=== PATIENT | female | born 1940 | race African-American/Black ===

== ENCOUNTER → 2017-12-05 | Outpatient (CLI) | payer MEDICARE, MEDICAID ==
[~2017-12-05] MED LIST: AMLO5TAB88 PO; CALC667C4 PO; CHOL100053 PO; FOLI-43 PO; LEVO88TA2 PO; METH2.5T PO; METH4TAB PO; NAPR-681 PO; OMEP20CA10 PO; POTA10TA15 PO; TRIA1CAP49 PO
== END | disposition home or self-care (01) ==
LOC: MAMMO 08:39
PROVIDERS: ATTEND Internal Medicine
DX: Z12.31 Encounter for screening mammogram for malignant neoplasm of breast (principal); E11.9 Type 2 diabetes mellitus without complications
CPT/HCPCS: 77067

== ENCOUNTER → 2018-03-08 | Day surgery (SDC) | payer MEDICARE, MEDICAID ==
[~2018-03-08] VITALS: Ht 149.9 cm; Wt 63.5 kg
[~2018-03-08] MED LIST changes: +ACETAMINOPHEN 325MG TABLET PO NR; +ACETYLCHOLINE CHLORIDE INTRAOCULAR SOLUTION 1:100 ELECTROLYTE DILUENT IO ONE; +BALANCED SALT IRRIG SOLN 15ML ONE; +BALANCED SALT IRRIG SOLN COMB1 500ML OP ONE; +BUPIVACAINE HCL/PF 0.75% (7.5MG/ML) 10ML ONE; +CALC1TAB PO; -CALC667C4 PO; +CIPROFLOXACIN 0.3% OPHTH SOLN 2.5ML ONE; +HYDROMORPHONE HCL/PF 2MG/ML CPJ IV PRN; +IBUPROFEN 600MG TABLET PO NR; +LIDOCAINE HCL/PF 1% 10 MG/ML 5ML VIAL ONE; +LIDOCAINE HCL/PF 2% 20 MG/ML 10ML VIAL ONE; +MIDAZOLAM HCL 2 MG/2 ML VIAL ONE; +NEO/POLYMYX B SULF/DEXAMETH OPHTH OINT 3.5GM ONE; +ONDANSETRON HCL 4MG/2ML VIAL IV PRN; +PHENYLEPHRINE 2.5% OPHTH 15 DROP/ML BOTTLE RIGHTEYE ONE; +PHENYLEPHRINE HCL 2.5% OPHTH DROPS 2ML ONE; +PREDNISOLONE ACETATE 1% OPHTH DROPS 1ML ONE; +PROPOFOL 200MG/20ML VIAL IV ONE; +SODIUM CHLORIDE 0.9% 1,000 ML IV ONE; +SUCCINYLCHOLINE CHLORIDE 200MG/10ML VIAL IV ONE; +TETRACAINE 0.5% OPHTH DROPS 4ML ONE; +TOBRAMYCIN/DEXAMETHASONE OPTH DROPS 2.5ML RIGHTEYE ONE; +TROPICAMIDE 1% OPHTH DROPS 15ML ONE; +TROPICAMIDE 1% OPHTH DROPS 15ML RIGHTEYE ONE
[2018-03-08 06:50] LABS: BASOPHILS % 0.5 % (0.0-2.0); EOSINOPHILS % 4.1 % (0.0-5.0); HEMATOCRIT. 32.9 % (36.0-48.0); HEMOGLOBIN. 10.7 g/dL (12.0-16.0); LYMPHOCYTES % 20.9 % (20.0-50.0); MEAN CORPUSCULAR HEMOGLOBIN 29.2 pg (28.0-32.0); MEAN CORPUSCULAR VOLUME 89.3 fL (81.0-99.0); MEAN PLATELET VOLUME 8.3 fl (7.4-10.4); NEUTROPHILS % 64.5 % (40.0-76.0); PLATELET 364 x1000/uL (130-400); RED BLOOD CELL COUNT 3.68 mill/uL (4.2-5.4); RED CELL DISTRIBUTION WIDTH 17.2 % (11.6-14.6)
[2018-03-08 06:54] LABS: CHLORIDE 108 mEq/L (98-107)
== END | disposition home or self-care (01) ==
LOC: OR 05:27
PROVIDERS: ATTEND Ophthalmology
DX: H26.8 Other specified cataract (principal); I10 Essential (primary) hypertension; E03.9 Hypothyroidism, unspecified; M19.90 Unspecified osteoarthritis, unspecified site; K21.9 Gastro-esophageal reflux disease without esophagitis; Z79.899 Other long term (current) drug therapy; Z98.890 Other specified postprocedural states; Z90.49 Acquired absence of other specified parts of digestive tract; Z90.710 Acquired absence of both cervix and uterus; Z88.5 Allergy status to narcotic agent; Z91.040 Latex allergy status
CPT/HCPCS: 36415; 66984; 80048; 85025; 93005; J0330; J2250; J3490; J7120; V2632; J2704

== ENCOUNTER 2018-07-23 16:05 | Emergency (ER) | payer MEDICARE, MEDICAID ==
[~2018-07-23] VITALS: Ht 149.9 cm; Wt 62.0 kg
[~2018-07-23 16:05] MED LIST changes: -ACETAMINOPHEN 325MG TABLET PO NR; -ACETYLCHOLINE CHLORIDE INTRAOCULAR SOLUTION 1:100 ELECTROLYTE DILUENT IO ONE; -BALANCED SALT IRRIG SOLN 15ML ONE; -BALANCED SALT IRRIG SOLN COMB1 500ML OP ONE; -BUPIVACAINE HCL/PF 0.75% (7.5MG/ML) 10ML ONE; -CIPROFLOXACIN 0.3% OPHTH SOLN 2.5ML ONE; -HYDROMORPHONE HCL/PF 2MG/ML CPJ IV PRN; -IBUPROFEN 600MG TABLET PO NR; -LIDOCAINE HCL/PF 1% 10 MG/ML 5ML VIAL ONE; -LIDOCAINE HCL/PF 2% 20 MG/ML 10ML VIAL ONE; -MIDAZOLAM HCL 2 MG/2 ML VIAL ONE; -NEO/POLYMYX B SULF/DEXAMETH OPHTH OINT 3.5GM ONE; -ONDANSETRON HCL 4MG/2ML VIAL IV PRN; -PHENYLEPHRINE 2.5% OPHTH 15 DROP/ML BOTTLE RIGHTEYE ONE; -PHENYLEPHRINE HCL 2.5% OPHTH DROPS 2ML ONE; -PREDNISOLONE ACETATE 1% OPHTH DROPS 1ML ONE; -PROPOFOL 200MG/20ML VIAL IV ONE; -SODIUM CHLORIDE 0.9% 1,000 ML IV ONE; -SUCCINYLCHOLINE CHLORIDE 200MG/10ML VIAL IV ONE; -TETRACAINE 0.5% OPHTH DROPS 4ML ONE; -TOBRAMYCIN/DEXAMETHASONE OPTH DROPS 2.5ML RIGHTEYE ONE; -TROPICAMIDE 1% OPHTH DROPS 15ML ONE; -TROPICAMIDE 1% OPHTH DROPS 15ML RIGHTEYE ONE
[2018-07-23 16:23] VITALS: BP 114/71
== END 2018-07-23 22:46 | disposition left against medical advice (07) ==
LOC: ER 16:05
DX: Z53.21 Procedure and treatment not carried out due to patient leaving prior to being seen by health care provider (principal)

== ENCOUNTER 2018-11-29 09:34 | Outpatient (CLI) | payer MEDICARE, MEDICAID ==
[2018-11-29] VITALS (12 sets, daily range): BP systolic 106–129; BP diastolic 59–78
[~2018-11-29] VITALS: Ht 149.9 cm; Wt 59.0 kg
[2018-11-29] MEDS ORDERED: FENTANYL CITRATE/PF 50MCG/ML 2ML VIAL ONE (10:27)
[2018-11-29] MEDS ORDERED: SODIUM BICARBONATE 4% (2.4MEQ) 5ML VIAL IV ONE (10:28)
[2018-11-29] MEDS ORDERED: LIDOCAINE HCL 1% 20ML VIAL (Pyxis) INJ ONE (10:28)
[2018-11-29] MEDS ORDERED: HYDROCODONE/ACETAMINOPHEN 5/325MG TABLET PO PRN (11:15)
[2018-11-29] MEDS ORDERED: FENTANYL CITRATE/PF 50MCG/ML 2ML VIAL IV ONE (11:45)
== END 2018-11-29 15:10 | disposition home or self-care (01) ==
LOC: RAD 09:34
PROVIDERS: ATTEND Internal Medicine Pulmonary Disease
DX: C34.92 Malignant neoplasm of unspecified part of left bronchus or lung (principal)
CPT/HCPCS: 32405; 71045; 71046; 77012; 88305; J3010; J3490

== ENCOUNTER 2019-01-01 05:23 | Inpatient (IN) | payer MEDICARE, MEDICAID ==
[2019-01-01] VITALS (36 sets, daily range): BP systolic 78–141; BP diastolic 48–76
[~2019-01-01] VITALS: Ht 152.4 cm; Wt 55.0 kg
[~2019-01-01 05:23] MED LIST changes: -OMEP20CA10 PO; +OMEP20CA5 PO
[2019-01-01] MEDS ORDERED: LACTATED RINGERS 1,000 ML IV SCH (05:30)
[2019-01-01 06:15] LABS: BG BASE EXCESS 0.4 mmol/L (-2.0-2.0); BG CARBOXYHEMOGLOBIN 0.4 % (0.5-1.5); BG DEOXYHEMOGLOBIN 4.1 % (0.0-5.0); BG FRACTION INSPIRED OXYGEN 21; BG HCO3 ACT 23.7 mmol/L (22.0-26.0); BG METHEMOGLOBIN 0.3 % (0.0-1.5); BG OXYGEN SATURATION 95.9 % (92.0-98.5); BG OXYHEMOGLOBIN 95.2 % (94.0-97.0); BG PCO2 33.9 mmHg (35.0-45.0); BG PH 7.462 (7.350-7.450); BG PO2 79.6 mmHg (75.0-100.0); BG SAMPLE SITE RIGHT BRACHIAL; BG VENT MODE ROOM AIR
[2019-01-01 06:31] LABS: CLARITY URINE CLEAR (CLEAR); COLOR URINE YELLOW (YELLOW); KETONES URINE NEGATIVE (NEGATIVE); LEUKOCYTE ESTERASE URINE TRACE (NEGATIVE); NITRITE URINE NEGATIVE (NEGATIVE); OCCULT BLOOD URINE NEGATIVE (NEGATIVE); PH URINE 7.5 (4.5-8.0); PROTEIN URINE NEGATIVE (NEGATIVE); SPECIFIC GRAVITY URINE 1.013 (1.005-1.030); UROBILINOGEN URINE 0.2 E.U./dL (0.2-1.0)
[2019-01-01] MEDS ORDERED: BACITRACIN 50,000 UNITS/VIAL ONE (07:02)
[2019-01-01] MEDS ORDERED: LIDOCAINE HCL/EPINEPHRINE 1%-EPI 1:100,000 20 ML VIAL ONE (07:02)
[2019-01-01] MEDS ORDERED: SKIN ADHESIVE 0.7 GM EA TOP ONE (07:02)
[2019-01-01] MEDS ORDERED: THROMBIN (BOVINE) 5000 UNITS/VIAL TOP ONE (07:08)
[2019-01-01] MEDS ORDERED: TETRACAINE/BENZOCAINE/BUTAMBEN 20 GM SPRAY MM ONE (07:20)
[2019-01-01] MEDS ORDERED: PROPOFOL 200MG/20ML VIAL IV ONE ×2 (07:34→11:57)
[2019-01-01] MEDS ORDERED: MIDAZOLAM HCL 2 MG/2 ML VIAL ONE (07:34)
[2019-01-01] MEDS ORDERED: ROCURONIUM BROMIDE 10MG/ML VIAL 5ML IV ONE ×2 (07:34→07:35)
[2019-01-01] MEDS ORDERED: LIDOCAINE HCL/PF 1% 10 MG/ML 5ML VIAL ONE (07:42)
[2019-01-01] MEDS ORDERED: BUPIVACAINE/EPINEPH/PF 0.25%/0.0005 10ML ONE (08:31)
[2019-01-01] MEDS ORDERED: ALBUTEROL 90MCG/PUFF 17GM INHALER INH ONE (09:03)
[2019-01-01] MEDS ORDERED: GLYCOPYRROLATE 0.2 MG/ML 2ML VIAL ONE (09:20)
[2019-01-01] MEDS ORDERED: NEOSTIGMINE METHYLSULFATE 1MG/ML 10 ML VIAL ONE (09:20)
[2019-01-01] MEDS ORDERED: ONDANSETRON HCL 4MG/2ML INJ IV PRN (11:45)
[2019-01-01] MEDS ORDERED: OXYCODONE HCL/ACETAMINOPHEN 5/325MG TABLET PO PRN ×2 (11:45)
[2019-01-01] MEDS ORDERED: SODIUM CHLORIDE 0.9% 500 ML IV PRN (11:45)
[2019-01-01] MEDS ORDERED: ACETAMINOPHEN 325MG TABLET PO PRN ×2 (11:45→13:00)
[2019-01-01] MEDS ORDERED: FUROSEMIDE 40MG/4ML VIAL ONE (11:56)
[2019-01-01 12:34] LABS: BG BASE EXCESS -2.8 mmol/L (-2.0-2.0); BG CARBOXYHEMOGLOBIN 0.3 % (0.5-1.5); BG DEOXYHEMOGLOBIN 5.4 % (0.0-5.0); BG HCO3 ACT 23.4 mmol/L (22.0-26.0); BG METHEMOGLOBIN 0.2 % (0.0-1.5); BG OXYGEN SATURATION 94.6 % (92.0-98.5); BG OXYHEMOGLOBIN 94.1 % (94.0-97.0); BG PCO2 46.1 mmHg (35.0-45.0); BG PH 7.323 (7.350-7.450); BG PO2 79.9 mmHg (75.0-100.0); BG SAMPLE SITE A-LINE; BG TOTAL HEMOGLOBIN 12.7 g/dL (12.0-18.0); BG VENT MODE MASK - SIMPLE
[2019-01-01 12:52] LABS: HEMATOCRIT. 35.9 % (36.0-48.0); HEMOGLOBIN. 11.5 g/dL (12.0-16.0); MEAN CORPUSCULAR HEMOGLOBIN 27.8 pg (28.0-32.0); MEAN CORPUSCULAR VOLUME 86.8 fL (81.0-99.0); MEAN PLATELET VOLUME 9.4 fl (7.4-10.4); PLATELET 410 x1000/uL (130-400); RED BLOOD CELL COUNT 4.14 mill/uL (4.2-5.4); RED CELL DISTRIBUTION WIDTH 17.9 % (11.6-14.6)
[2019-01-01 13:01] LABS: CHLORIDE 102 mEq/L (98-107)
[2019-01-01] MEDS: MORPHINE SULFATE 2 MG/ML CPJ (NOT FOR IM USE) IV PRN ×3 (13:14→18:34)
[2019-01-01] MEDS: LEVOTHYROXINE SODIUM 88MCG TABLET PO SCH (13:30)
[2019-01-01] MEDS ORDERED: SODIUM CHLORIDE 0.9% 250 ML IV ONE (13:30)
[2019-01-01 13:42] LABS: PLATELET ESTIMATE SLIGHTLY INCREASED
[2019-01-01] MEDS: MAGNESIUM HYDROXIDE 400MG/5ML 30ML UDC PO SCH ×3 (13:58→21:42)
[2019-01-01] MEDS: DEXT 5%/0.45% NACL 1000ML 1,000 ML IV SCH (14:37)
[2019-01-01] MEDS: CEFAZOLIN 1000MG PREMIX 50 ML IV SCH ×2 (15:01→21:42)
[2019-01-01] MEDS: DOCUSATE SODIUM 100MG CAPSULE PO SCH (16:30)
[2019-01-01] MEDS: KETOROLAC 15MG/ML VIAL IV SCH ×2 (18:34→23:33)
[2019-01-01] MEDS ORDERED: HYDROMORPHONE HCL/PF 2MG/ML CPJ IV SCH (19:15)
[2019-01-02] VITALS (46 sets, daily range): BP systolic 82–132; BP diastolic 34–89
[2019-01-02] MEDS: MAGNESIUM HYDROXIDE 400MG/5ML 30ML UDC PO SCH ×4 (01:06→14:00)
[2019-01-02] MEDS: IPRATROPIUM/ALBUTEROL 0.5-3(2.5)MG/3ML NEB HHN SCH ×6 (04:15→22:22)
[2019-01-02] MEDS: KETOROLAC 15MG/ML VIAL IV SCH ×3 (05:02→18:03)
[2019-01-02] MEDS: CEFAZOLIN 1000MG PREMIX 50 ML IV SCH ×2 (05:03→14:23)
[2019-01-02 06:04] LABS: HEMATOCRIT. 34.1 % (36.0-48.0); HEMOGLOBIN. 11.3 g/dL (12.0-16.0); MEAN CORPUSCULAR HEMOGLOBIN 28.5 pg (28.0-32.0); MEAN PLATELET VOLUME 9.4 fl (7.4-10.4); PLATELET 375 x1000/uL (130-400); RED BLOOD CELL COUNT 3.96 mill/uL (4.2-5.4); RED CELL DISTRIBUTION WIDTH 17.1 % (11.6-14.6)
[2019-01-02 06:07] LABS: CHLORIDE 101 mEq/L (98-107)
[2019-01-02] MEDS: DEXT 5%/0.45% NACL 1000ML 1,000 ML IV SCH (06:19)
[2019-01-02 07:27] LABS: PLATELET ESTIMATE NORMAL
[2019-01-02] MEDS: LEVOTHYROXINE SODIUM 88MCG TABLET PO SCH (08:13)
[2019-01-02] MEDS: DOCUSATE SODIUM 100MG CAPSULE PO SCH ×2 (08:14→18:03)
[2019-01-02] MEDS: FAMOTIDINE 20MG/2ML VIAL IV SCH (08:14)
[2019-01-02] MEDS ORDERED: POTASSIUM CHLORIDE 20MEQ TABLET SR PO NR (13:30)
[2019-01-03] VITALS (11 sets, daily range): BP systolic 94–135; BP diastolic 56–81
[2019-01-03] MEDS: IPRATROPIUM/ALBUTEROL 0.5-3(2.5)MG/3ML NEB HHN SCH ×5 (00:20→17:50)
[2019-01-03 06:04] LABS: HEMATOCRIT. 32.9 % (36.0-48.0); HEMOGLOBIN. 10.9 g/dL (12.0-16.0); MEAN CORPUSCULAR HEMOGLOBIN 28.4 pg (28.0-32.0); MEAN CORPUSCULAR VOLUME 86.1 fL (81.0-99.0); PLATELET 363 x1000/uL (130-400); RED BLOOD CELL COUNT 3.82 mill/uL (4.2-5.4)
[2019-01-03] MEDS: LEVOTHYROXINE SODIUM 88MCG TABLET PO SCH (06:21)
[2019-01-03] MEDS: FAMOTIDINE 20MG/2ML VIAL IV SCH (08:44)
[2019-01-03] MEDS: DOCUSATE SODIUM 100MG CAPSULE PO SCH ×2 (08:45→17:09)
[2019-01-03] MEDS: MORPHINE SULFATE 2 MG/ML CPJ (NOT FOR IM USE) IV PRN (09:14)
[2019-01-03] MEDS ORDERED: POTASSIUM CHLORIDE 20MEQ TABLET SR PO SCH (10:30)
[2019-01-03 14:27] LABS: PLATELET ESTIMATE NORMAL
[2019-01-03] MEDS ORDERED: DOCUSATE SODIUM 100MG CAPSULE PO SCH (17:00)
[2019-01-03] MEDS: LACTULOSE 20G/30ML UDC PO SCH ×2 (17:07→21:27)
[2019-01-03] MEDS ORDERED: IPRATROPIUM/ALBUTEROL 0.5-3(2.5)MG/3ML NEB HHN PRN (18:00)
[2019-01-03] MEDS: FLUTICASONE/VILANTEROL 200-25 BLST.W.DEV ORI SCH (20:13)
[2019-01-03] MEDS: POLYETHYLENE GLYCOL 3350 (17GM) 1 DOSE PACK PO SCH (21:27)
[2019-01-04] VITALS (13 sets, daily range): BP systolic 108–138; BP diastolic 55–102
[2019-01-04] MEDS: LEVOTHYROXINE SODIUM 88MCG TABLET PO SCH (06:29)
[2019-01-04 07:19] LABS: CHLORIDE 100 mEq/L (98-107)
[2019-01-04] MEDS: LACTULOSE 20G/30ML UDC PO SCH (09:00)
[2019-01-04] MEDS: DOCUSATE SODIUM 100MG CAPSULE PO SCH ×2 (09:00→17:00)
[2019-01-04] MEDS: FAMOTIDINE 20MG/2ML VIAL IV SCH (09:39)
[2019-01-04] MEDS: MORPHINE SULFATE 2 MG/ML CPJ (NOT FOR IM USE) IV PRN (19:38)
[2019-01-04] MEDS: POLYETHYLENE GLYCOL 3350 (17GM) 1 DOSE PACK PO SCH (21:00)
[2019-01-05] VITALS (8 sets, daily range): BP systolic 108–124; BP diastolic 56–77
[2019-01-05] MEDS: LEVOTHYROXINE SODIUM 88MCG TABLET PO SCH (06:18)
[2019-01-05 08:18] LABS: BASOPHILS % 0.4 % (0.0-2.0); CHLORIDE 102 mEq/L (98-107); EOSINOPHILS % 10.7 % (0.0-5.0); HEMATOCRIT. 32.6 % (36.0-48.0); HEMOGLOBIN. 10.7 g/dL (12.0-16.0); LYMPHOCYTES % 10.7 % (20.0-50.0); MEAN CORPUSCULAR HEMOGLOBIN 28.4 pg (28.0-32.0); MEAN CORPUSCULAR VOLUME 86.8 fL (81.0-99.0); MEAN PLATELET VOLUME 8.9 fl (7.4-10.4); MONOCYTES % 6.8 % (2.0-8.0); NEUTROPHILS % 71.4 % (40.0-76.0); PLATELET 474 x1000/uL (130-400); RED BLOOD CELL COUNT 3.75 mill/uL (4.2-5.4); RED CELL DISTRIBUTION WIDTH 16.9 % (11.6-14.6)
[2019-01-05] MEDS: DOCUSATE SODIUM 100MG CAPSULE PO SCH (08:24)
[2019-01-05] MEDS: FAMOTIDINE 20MG/2ML VIAL IV SCH (08:24)
[2019-01-05] MEDS: FLUTICASONE/VILANTEROL 200-25 BLST.W.DEV ORI SCH (08:24)
== END 2019-01-05 12:03 | disposition home health service (06) | DRG 163 ==
LOC: OR 05:23 → CVICU 05:24 → 3WST 01-02 23:11
PROVIDERS: ADMIT Internal Medicine; ATTEND Internal Medicine
PROC: 07B70ZZ Excision of Thorax Lymphatic, Open Approach (ICD-10-PCS; principal; 2019-01-01)
PROC: 3E0T3BZ Introduction of Anesthetic Agent into Peripheral Nerves and Plexi, Percutaneous Approach (ICD-10-PCS; 2019-01-01)
PROC: 0W9B00Z Drainage of Left Pleural Cavity with Drainage Device, Open Approach (ICD-10-PCS; 2019-01-01)
PROC: 0BTJ0ZZ Resection of Left Lower Lung Lobe, Open Approach (ICD-10-PCS; 2019-01-01)
PROC: 0BB Respiratory System, Excision (ICD-10-PCS; 2019-01-01)
DX: C34.32 Malignant neoplasm of lower lobe, left bronchus or lung (principal); J96.01 Acute respiratory failure with hypoxia; R65.11 Systemic inflammatory response syndrome (SIRS) of non-infectious origin with acute organ dysfunction; N17.9 Acute kidney failure, unspecified; E44.0 Moderate protein-calorie malnutrition; I10 Essential (primary) hypertension; M06.9 Rheumatoid arthritis, unspecified; K21.9 Gastro-esophageal reflux disease without esophagitis; E11.9 Type 2 diabetes mellitus without complications; E03.9 Hypothyroidism, unspecified; E78.00 Pure hypercholesterolemia, unspecified; M19.90 Unspecified osteoarthritis, unspecified site; E87.6 Hypokalemia; D64.9 Anemia, unspecified; D72.829 Elevated white blood cell count, unspecified; E78.5 Hyperlipidemia, unspecified; Z60.2 Problems related to living alone; Z96.653 Presence of artificial knee joint, bilateral; M10.9 Gout, unspecified; R26.9 Unspecified abnormalities of gait and mobility; I25.10 Atherosclerotic heart disease of native coronary artery without angina pectoris; K59.00 Constipation, unspecified; M81.0 Age-related osteoporosis without current pathological fracture; Z80.49 Family history of malignant neoplasm of other genital organs; Z82.3 Family history of stroke; Z87.891 Personal history of nicotine dependence; Z90.710 Acquired absence of both cervix and uterus; Z90.49 Acquired absence of other specified parts of digestive tract; Z79.899 Other long term (current) drug therapy; Z68.23 Body mass index [BMI] 23.0-23.9, adult
CPT/HCPCS: 36415; 36600; 71045; 73706; 80048; 82375; 82805; 83735; 84443; 84484; 86850; 86900; 88305; 88309; 93005; 94640; 97116; 97163; 97166; 97530; J0171; J0690; J1885; J1940; J2250; J2270; J2704; J2710; J3490; J7050; J7620

== ENCOUNTER → 2019-10-17 | Outpatient (CLI) | payer MEDICARE, MEDICAID ==
[~2019-10-17] MED LIST changes: -METH4TAB PO; +OMEP20CA14 PO; -OMEP20CA5 PO
== END | disposition home or self-care (01) ==
LOC: MAMMO 10:02
PROVIDERS: ATTEND Internal Medicine
DX: Z12.31 Encounter for screening mammogram for malignant neoplasm of breast (principal); N64.89 Other specified disorders of breast
CPT/HCPCS: 77067